=== PATIENT | male | born 1960 | race Caucasian/White ===

== ENCOUNTER → 2016-09-21 12:04 | Outpatient (CLI) | payer BC | END | disposition home or self-care (01) | LOC: D.US 12:04 | DX: R60.0 Localized edema (principal) ==

== ENCOUNTER 2018-05-14 17:06 | Observation (INO) | payer OTHER ==
[~2018-05-14] VITALS: Ht 172.7 cm; Wt 104.1 kg
[2018-05-14] MEDS ORDERED: NEXIUM20 MG PO (17:21)
[2018-05-14 17:41] LABS: BASOPHILS 0.2 % (0-2); EOSINOPHILS 2.4 % (0-7); HEMATOCRIT 42.4 % (42.0-54.0); HEMOGLOBIN 14.7 g/dL (13.5-17.5); IMMATURE GRANULOCYTES 0.2 % (0-5); LYMPHOCYTES 24.8 % (15-50); MCH 30.6 pg (26.0-34.0); MCHC 34.7 g/dL (31.0-37.0); MCV 88.1 fL (80.0-100.0); MONOCYTES 7.3 % (2-11); NEUTROPHILS 65.1 % (40-80); PLATELET COUNT 178 10x3/uL (130-400); RBC 4.81 10x6/uL (4.20-6.10); RDW 13.7 % (11.5-14.5); WBC 6.3 10x3/uL (4.8-10.8)
[2018-05-14 18:32] LABS: ALBUMIN 4.1 g/dL (3.4-5.0); ALKALINE PHOSPHATASE 93 U/L (46-116); ALT (SGPT) 61 U/L (10-68); CALC OSMOLALITY 281 mosm/kg (275-300); CALCIUM 8.8 mg/dL (8.5-10.1); CHLORIDE - SERUM 104 mmol/L (98-107); CREATINE KINASE 95 UL (21-232); GLUCOSE 94 mg/dL (74-106); POTASSIUM - SERUM 4.1 mmol/L (3.5-5.1); SODIUM 141 mmol/L (136-145); UREA NITROGEN 16 mg/dL (7-18)
[2018-05-14 18:33] LABS: TROPONIN-I < 0.017 ng/mL (0.000-0.060)
--- NOTE | 2018-05-14 18:39 | NUR ---
PT SITTING UPRIGHT IN BED, RESPIRATIONS EVEN AND UNLABORED. NO SIGNS OF DISTRESS. PT DENIES ANY CP. CALL LIGHT IN REACH, FAMILY MEMBER AT THE BEDSIDE. WILL CONTINUE TO MONITOR.
--- NOTE | 2018-05-14 18:50 | NUR ---
DR. JOHNSTON AT BEDSIDE.
--- NOTE | 2018-05-14 19:19 | NUR ---
HAND-OFF REPORT GIVEN TO JORGE SMITH.
[2018-05-14 20:16] LABS: CARBON DIOXIDE 24.2 mmol/L (21.0-32.0); CREATININE - SERUM 1.2 mg/dL (0.6-1.3); eGFR NON AFRICAN AMERICAN 66 mL/min (90-120)
--- NOTE | 2018-05-14 20:43 | NUR ---
PT STABLE, DENIES NEEDS, CALL LIGHT WITHIN REACH, WILL CONTINUE TO MONITOR.
--- NOTE | 2018-05-14 21:00 | NUR ---
INITIAL ROUNDS COMPLETED AND PT RESTING IN BED WITH NO DISTRESS. MONITOR AND CPOC.
[2018-05-14 21:05] VITALS: BP 131/85
--- NOTE | 2018-05-14 21:10 | NUR ---
ATTEMPTED TO CALL REPORT, PAULO TO CALL BACK WHEN OUT OF A PATIENT ROOM.
--- NOTE | 2018-05-14 21:39 | NUR ---
PT REPORT CALLED TO NURSE PAULO. PT ADMITTED TO ROOM 2121. PT STABLE AT THIS TIME.
[2018-05-14 23:55] VITALS: BP 130/79
[2018-05-15 00:07] VITALS: BP 128/80; Ht 172.7 cm; Wt 104.1 kg
[2018-05-15 03:55] VITALS: BP 118/71
[2018-05-15 05:39] LABS: BASOPHILS 0.2 % (0-2); EOSINOPHILS 3.2 % (0-7); HEMATOCRIT 38.8 % (42.0-54.0); HEMOGLOBIN 13.2 g/dL (13.5-17.5); IMMATURE GRANULOCYTES 0.2 % (0-5); LYMPHOCYTES 30.7 % (15-50); MCH 29.9 pg (26.0-34.0); MEAN PLATELET VOLUME 9.2 fL (7.4-10.4); MONOCYTES 11.9 % (2-11); NEUTROPHILS 53.8 % (40-80); PLATELET COUNT 180 10x3/uL (130-400); RBC 4.41 10x6/uL (4.20-6.10); RDW 13.8 % (11.5-14.5)
[2018-05-15 05:41] LABS: WBC 4.6 10x3/uL (4.8-10.8)
[2018-05-15 06:10] LABS: ALBUMIN 3.3 g/dL (3.4-5.0); ALKALINE PHOSPHATASE 75 U/L (46-116); ALT (SGPT) 54 U/L (10-68); BILIRUBIN - TOTAL 0.33 mg/dL (0.2-1.3); CALC OSMOLALITY 283 mosm/kg (275-300); CALCIUM 8.1 mg/dL (8.5-10.1); CARBON DIOXIDE 27.5 mmol/L (21.0-32.0); CHLORIDE - SERUM 108 mmol/L (98-107); CKMB 0.7 U/L (0.0-3.6); CREATINE KINASE 62 UL (21-232); CREATININE - SERUM 1.1 mg/dL (0.6-1.3); GLUCOSE 101 mg/dL (74-106); POTASSIUM - SERUM 3.8 mmol/L (3.5-5.1); PROTEIN - SERUM 6.5 g/dL (6.4-8.2); SODIUM 142 mmol/L (136-145); TROPONIN-I < 0.017 ng/mL (0.000-0.060); UREA NITROGEN 15 mg/dL (7-18); eGFR NON AFRICAN AMERICAN 73 mL/min (90-120)
--- NOTE | 2018-05-15 08:09 | NUR ---
ASSESSMENT COMPLETED. DENIES ANY PAIN. TELEMERTY SHOWS SB. UP AB YANY. WILL MONITOR RIGHT HAND SL
[2018-05-15 08:37] VITALS: BP 113/78
--- NOTE | 2018-05-15 10:50 | NUR ---
PT DISCHARGED. IV DCD WITH TIP INTACT. INSTRUCTIONS GIVEN TO PT AND . TO PRIVATE CAR PER WHEELCHAIR
--- NOTE | 2018-05-15 17:16 | MORECARE ---
CASE MANAGEMENT DISCHARGE SUMMARY PATIENT: WILBERT CRAWFORD JR UNIT: [id number] ADM DATE: 05/14/18 AGE: 57 : 56 SEX: M ROOM/BED: D.2122 AUTHOR: STEPHANIE PELLETIER PHYSICIAN: REFERRING PHYSICIAN: TODD ALTAMIRANO MD DATE OF SERVICE: 05/15/18 Discharge Plan Patient Name: WILBERT CRAWFORD [facility] [facility] 1960 Planned Disposition: Home Anticipated Discharge Date: 05/15/18 Discharge Date: 05/15/2018 Expected LOS: 1 Initial Reviewer: [id number] Initial Review Date: 05/15/2018 Generated: 05/15/18 6:16 pm Patient Name: WILBERT CRAWFORD Page [id number] at 1716 All edits/amendments must be made on the electronic document DICTATION DATE: 05/15/181715 SCABBLER: ALEXANDRA 05/15/181715 RPT#: [id number] DC DATE:05/15/18 STATUS: DIS IN [facility] [address] [facility] [place] [address] END OF REPORT
== END 2018-05-15 10:56 | disposition home or self-care (01) ==
LOC: D.OPS 17:06 → D.ER 17:06 → OBSVTIME 19:15 → D.M2 19:15 → EDSTATUS 19:30 → D.M2 05-15 10:56
PROVIDERS: Family Medicine; ADMIT Internal Medicine Interventional Cardiology; ATTEND Internal Medicine Interventional Cardiology
DX: R07.9 Chest pain, unspecified (principal); K21.9 Gastro-esophageal reflux disease without esophagitis; R00.1 Bradycardia, unspecified

== ENCOUNTER → 2018-05-23 14:41 | Outpatient (CLI) | payer OTHER ==
[2018-05-15 00:07] VITALS: BMI 34.9
[~2018-05-23 14:41] MED LIST: NEXIUM20 MG PO
--- NOTE | 2018-05-25 15:13 | ST ---
PATIENT:WILBERT CRAWFORD JR MEDICAL RECORD: [id number] SEX: M LOCATION:[facility] ORDER #: ADMISSION DATE: 05/23/18 AGE OF PATIENT: 57 REFERRING PHYSICIAN: INTERPRETING PHYSICIAN: TODD ALTAMIRANO MD DATE OF SERVICE: 05/23/2018 PROCEDURE: Stress test on Jesus protocol. INDICATION: Chest pain. He was exercised on standard Jesus protocol for 8 minutes, terminated due to 100% max target heart rate response to treatment. He did have 2-mm ST depression with stress. OVERALL IMPRESSION: Positive for inducible ischemia at adequate cardiac workload suggestive of significant coronary artery disease. We will proceed with coronary angiography as followup study. TRANSINT:[id number] Voice Confirmation ID: [id number] DOCUMENT ID: [id number] TODD ALTAMIRANO MD at 1513 CC: [id number] DICTATION DATE: 05/23/18 1519 PATIENT CARE TECHNICIAN: 05/24/18 0843 DEP CLI 05/23/[address] [address]
== END | disposition home or self-care (01) ==
LOC: D.HCCARDIO 14:41
PROVIDERS: ATTEND Internal Medicine Interventional Cardiology
DX: R07.9 Chest pain, unspecified (principal)

== ENCOUNTER 2018-06-01 07:56 | Outpatient (CLI) | payer OTHER ==
[~2018-06-01] VITALS: Ht 172.7 cm; Wt 102.3 kg
--- NOTE | ~2018-06-01 | HEMODYNAMI ---
PATIENT:WILBERT CRAWFORD JR MEDICAL RECORD: [id number] : 56 LOCATION:[facility] ADMISSION DATE: 06/01/18 Generatedon:06/01/201812:01 Patient name: WILBERT CRAWFORD Patient #: [id number] SSN: : 1960 Date of study: 06/01/2018 Page: Of Hemodynamic Procedure Report Patient Data Patient Demographics Procedure consent was obtained First Name: WILBRET Gender: Male Last Name: TY Suffix: [facility] Initial: NERIS : 1960 Patient #: [id number] Age: 57 year(s) Race: Unknown Additional ID: [id number] Contact details Address: [address] [place] [address] [facility] State: [place] City: [place] Zip code: [address] Past Medical History Allergies: No known allergies Admission Admission Data Admission Date: 06/01/2018 Admission Time: 7:56 Lab Results Lab Result Date: 06/01/2018 Lab Result Time: 0:00 Biochemistry Name Units Result Min Max BUN mg/dl 16 --(---*)-- 7 18 Creatinine mg/dl 1.2 --(---*)-- 0.6 1.3 CBC Name Units Result Min Max Hemoglobin g/dl 14.6 --(-*--)-- 13.5 17.5 Procedure Procedure Types Cath Procedure Diagnostic Procedure LHC C w/Coronaries Procedure Description Procedure Date Procedure Date: 06/01/2018 Procedure Start Time: 11:51 Procedure End Time: 12:00 Procedure Staff Name Function Bo Patton MD Performing Physician Betsy Castellanos RN Nurse Geovanna Perez RT Scrub Zaki Parr RT Monitor Procedure Data Cath Procedure Fluoroscopy Diagnostic fluoroscopy Total fluoroscopy Time: 1.4 time: 1.4 min min Diagnostic fluoroscopy Total fluoroscopy dose: 483 dose: 483 mGy mGy Contrast Material Contrast Material Type Amount (ml) Isovue 300 32 Entry Location Entry Primary Successful Side Size Upsize Upsize Entry Closure Hardy ccessful Closure Location (Fr) 1 (Fr) 2 (Fr) Remarks Device Remarks Radial Right 6 Fr Mechanical artery Short Compression Estimated blood loss: 10 ml Diagnostic catheters Device Type Used For End Catheter Placement DIAGNOSTIC Weldon 110cm 5 Procedure Fr catheter (136208) Procedure Medications Medication Administration Route Dosage 0.9% NaCl I.V. 100 ml/hr Oxygen etCO2 Nasal cannula 2 l/min Lidocaine 2% added to field 20 Heparin Flush Bag added to field 2 bags (1000units/500ml NS) Radial Cocktail added to field 1 syringe (Verapomil 2mg/Nitro 400mcg/Heparin 1500units) Versed I.V. 2 mg Fentanyl I.V. 50 mcg Versed I.V. 1 mg Fentanyl I.V. 25 mcg Hemodynamics Rest HGB: 14.6 (g/dl) Heart Rate: 64 (bpm) Pressure Samples Time Site Value (mmHg) Purpose Heart Use Rate(bpm) 11:53 LV 84/1,6 Snapshot 57 11:53 LV 88/-1,7 EDP 60 Snapshots Pre Cath Intra NCS Post Cath Vital Signs Time Heart Resp SPO2 etCO2 NIBP (mmHg) Rhythm Pain Sedation Rate (ipm) (%) (mmHg) Status Level (bpm) 11:14:30 58 13 99 37.3 135/86(104) SB 0 (11) 10(A) , No pain 11:18:50 59 16 100 35.8 139/88(106) SB 0 (11) 10(A) , No pain 11:23:11 55 11 100 31.3 131/88(105) SB 0 (11) 10(A) , No pain 11:27:27 58 9 99 10.4 124/77(93) SB 0 (11) 10(A) , No pain 11:31:37 59 9 98 37.3 119/83(96) SB 0 (11) 10(A) , No pain 11:35:51 57 9 98 37.3 120/84(98) SB 0 (11) 10(A) , No pain 11:40:11 53 10 99 40.3 125/71(85) SB 0 (11) 10(A) , No pain 11:44:27 50 10 99 38.8 121/73(102) SB 0 (11) 10(A) , No pain 11:48:39 48 10 99 11.9 115/77(99) SB 0 (11) 10(A) , No pain 11:52:52 64 12 100 39.5 111/79(91) SB 0 (11) 10(A) , No pain 11:57:02 65 11 97 38.8 103/68(86) SB 0 (11) 10(A) , No pain Medications Time Medication Route Dose Verified Delivered Reason Notes E ffectiveness by by 11:16:07 0.9% NaCl I.V. 100 Bo Betsy used for ml/hr Pooja Castellanos missileman 11:17:05 Oxygen etCO2 2 l/min Bo Betsy used for Nasal Pooja Castellanos procedure cannula RN 11:17:12 Lidocaine 2% added 20ml Bo Bo for local to vial Pooja Patton MD anesthetic field 11:17:17 Heparin Flush added 2 bags Bo Bo used for Bag to Pooja Patton MD procedure (1000units/500ml field NS) 11:17:23 Radial Cocktail added 1 Bo Bo used for (Verapomil to syringe Pooja Patton MD procedure 2mg/Nitro field 400mcg/Heparin 1500units) 11:48:50 Versed I.V. 2 mg Bo Betsy for Pooja Castellanos sedation RN 11:48:56 Fentanyl I.V. 50 mcg Bo Betsy for Pooja Castellanos sedation RN 11:52:03 Fentanyl I.V. 25 mcg Bo Betsy for Pooja Castellanos sedation RN 11:52:56 Versed I.V. 1 mg Bo Betsy for Pooja Castellanos sedation transitional living specialist Log Time Note 11:00:08 Betsy Castellanos RN sent for patient. Start room use. 11:05:34 Signed procedure consent form obtained from patient. 11:05:35 Time tracking: Regular hours (M-F 7:00 - 5:00) 11:05:38 Plan of Care:Hemodynamics will remain stable., Cardiac rhythm will remain stable., Comfort level will be maintained., Respiratory function will remain adequate., Patient/ family verbilizes understanding of procedure., Procedure tolerated without complication., Recovers from procedure without complications.. 11:05:40 Diagnostic Cath status Elective 11:06:25 Patient received from Pre/Post Procedure Room to CCL 1 Alert and oriented. Tansferred to table in Supine position. 11:06:26 Warm blankets applied, and benjamin hugger turned on for patient comfort. 11:06:27 Correct patient and procedure confirmed by team. 11:06:27 ECG and BP/O2 sat monitors applied to patient. 11:13:21 Vital chart was started 11:13:23 Baseline sample Acquired. 11:13:33 Rhythm: sinus bradycardia 11:13:36 Full Disclosure recording started 11:13:39 H&P Date Dictated: 06/01/2018 New H&P dictated by physician.. 11:13:40 Pre-procedure instructions explained to patient. 11:13:40 Pre-op teaching completed and patient verbalized understanding. 11:13:42 Family in patients room. 11:13:43 Patient NPO since Midnight. 11:13:47 Patient allergic to No known allergies 11:13:49 Is patient on blood thinner?No 11:13:53 Previous problem with sedation/anesthesia? No ? 11:13:54 Snore? Yes 11:13:58 Sleep apnea? No 11:13:58 Deviated septum? No 11:14:00 Opens mouth fully? Yes 11:14:00 Sticks out tongue? Yes 11:14:02 Airway obstruction? No ? 11:14:08 Dentures? Yes PARTIAL IN TIGHT 11:14:13 Modified Jorge's test Ulnar < 7 seconds 11:14:15 Patient pain scale 0/10 ?. 11:14:18 IV patent on arrival in left hand with 0.9% NaCl at O. 11:14:55 Lab results completed and on chart. 11:15:05 Right Radial & Right Groin area was prepped with chlora-prep and draped in sterile fashion 11:15:07 Alarms reviewed by R. N. 11:15:07 Sharps counted by scrub and verified by R.N. 11:15:10 Use device set Radial Dx or PCI 11:15:10 ACIST Syringe (75775) opened to sterile field. 11:15:13 Bag Decanter () opened to sterile field. 11:15:13 ACIST Hand Control (96408) opened to sterile field. 11:15:14 ACIST Manifold (91857) opened to sterile field. 11:15:14 Tegaderm 4 x 4 (1626W) opened to sterile field. 11:15:16 Medline Cath Pack ([id number]) opened to sterile field. 11:15:17 DIAGNOSTIC WIRE .035 260cm J wire (808915) opened to sterile field. 11:15:17 MBrace Wrist Support ([id number]) opened to sterile field. 11:15:18 SHEATH 6FR Slender (86-2536) opened to sterile field. 11:16:07 0.9% NaCl 100 ml/hr I.V. was administered by Betsy Castellanos RN; used for procedure; 11:16:11 Lab Result : BUN 16 mg/dl 11:16:11 Lab Result : Hemoglobin 14.6 g/dl 11:16:11 Lab Result : Creatinine 1.2 mg/dl 11:17:05 Oxygen 2 l/min etCO2 Nasal cannula was administered by Betsy Castellanos RN; used for procedure; 11:17:12 Lidocaine 2% 20ml vial added to field was administered by Bo Patton MD; for local anesthetic; 11:17:17 Heparin Flush Bag (1000units/500ml NS) 2 bags added to field was administered by Bo Patton MD; used for procedure; 11:17:23 Radial Cocktail (Verapomil 2mg/Nitro 400mcg/Heparin 1500units) 1 syringe added to field was administered by Bo Patton MD; used for procedure; 11:19:01 Patient diabetic? No. 11:19:37 Pre procedure: right dorsailis pedis pulse 2+ Normal; easily identifiable; not easily obliterated 11:35:38 Dr. Patton in room 3 11:48:07 Physician arrived 11:48:28 --------ALL STOP TIME OUT------ 11:48:30 Final Timeout: patient, procedure, and site verified with staff and physician. All members of the team are in agreement. 11:48:34 Right Radial & Right Groin site verified by team. 11:48:40 Maximum allowable Isovue 300 dose 300ml. Physician notified. (300ml for normal creatinines. For patients with creatinine of 1.7 or higher multiply weight(kg) x 5 divided by creatinine.) 11:48:46 Fire Safety Assessment: A--An alcohol-based skin anteseptic being used preoperatively., C--Open oxygen or nitrous oxide is being used., D--An ESU, laser, or fiber-optic light is being used. 11:48:50 Versed 2 mg I.V. was administered by Betsy Castellanos RN; for sedation; 11:48:56 Fentanyl 50 mcg I.V. was administered by Betsy Castellanos RN; for sedation; 11:48:56 Physical assessment completed. ASA score P 2 - A patient with mild systemic disease as per Bo Patton MD. 11:49:02 Sedation plan: IV Moderate Sedation Medication:Versed, Fentanyl 11:51:25 Procedure started. 11:51:37 Local anesthetic to right radial artery with Lidocaine 2% by Bo Patton MD.INITIAL ACCESS ONLY 11:52:03 Fentanyl 25 mcg I.V. was administered by Betsy Castellanos RN; for sedation; 11:52:16 A 6 Fr Short sheath was inserted into the Right Radial artery 11:52:25 A DIAGNOSTIC Weldon 110cm 5 Fr catheter ([id number]) was advanced over the wire and used for Procedure. 11:52:50 Zero performed for pressure channel P1 11:52:53 Zero performed for pressure channel P1 11:52:56 Versed 1 mg I.V. was administered by Betsy Castellanos RN; for sedation; 11:54:06 LV gram done using MILAN 11:54:08 LV hemodynamics recorded. 11:54:14 EF : 50 % 11:54:39 LCA angiography performed. 11:55:50 RCA angiography performed. 11:56:06 Catheter removed. 11:56:17 TR BAND Standard ([id number]) opened to sterile field. 11:56:37 Sheath removed intact; hemostasis achieved with Mechanical Compression to the Right Radial artery. 11:56:41 Procedure ended.(Physican Out) 11:56:47 Fluoroscopy time 01.40 minutes. 11:57:02 Fluoroscopy dose: 483 mGy 11:57:02 Flurop Dose total: 483 11:57:07 Contrast amount:Isovue 300 32ml. 11:57:10 Sharps counted by scrub and verified by R.N. 11:59:24 TR band inflated with 9cc of air. 11:59:26 Insertion/operative site no bleeding no hematoma. 11:59:33 Post right radial artery:stable 12:00:02 Post Procedure Pulses reassessed and unchanged 12:00:05 Post-procedure physical assessment completed. ASA score P 2 - A patient with mild systemic disease as per Bo Patton MD. 12:00:09 Post procedure rhythm: sinus bradycardia 12:00:12 Estimated blood loss: 10 ml 12:00:15 Patient needs reinforcement of post procedure teaching. 12:00:16 Procedure and supply charges have been captured, reviewed, submitted and are correct. 12:00:18 Vital chart was stopped 12:00:18 See physician's report for complete and final results. 12:00:30 Report given to Pre/Post Procedure Room. 12:00:35 Patient transfered to Pre/Post Procedure Room with Stretcher. 12:00:37 Procedure ended. 12:00:37 Full Disclosure recording stopped 12:00:40 End room use (Document Last) Device Usage Item Name Manufacture Quantity Catalog Hospital Part Current Minimal Lot# / Number Charge Number Stock Stock Serial# Code ACIST Acist 1 33217 351120 403316 434077 20 Syringe Medical (10591) Systems Inc Bag Microtek 1 2001S 424855 70951 029546 5 Decanter Medical Inc. () ACIST Hand Acist 1 84838 542450 923789 989188 5 Control Medical (40093) Systems Inc ACIST Acist 1 60648 596544 312597 956266 5 Manifold Medical (77017) Systems Inc Tegaderm 4 3M 1 1626W 393297 002722 580070 5 x 4 (1626W) Medline Medline 1 [id number] 265290 87447 532125 5 Cath Pack ([id number]) DIAGNOSTIC St Shaka 1 526008 564575 374051 684150 30 WIRE .035 260cm J wire (207939) MBrace Advanced 1 140-0250-00 909399 99601 705228 5 Wrist Vascular Support Dynamics ([id number]) SHEATH 6FR Terumo 1 [id number] 922827 058002 088837 5 Slender (80-1060) DIAGNOSTIC Terumo 1 40-8321 814781 902554 879944 5 Weldon 110cm 5 Fr catheter (003800) TR BAND Terumo 1 [id number] 043275 620053 946344 40 Standard ([id number]) Signature Audit Talbott Stage Time Signature Unsigned Intra-Procedure 06/01/2018 Zaki Parr 12:01:04 PM RT(R) (CV) Signatures Monitor : Zaki Parr RT Signature : Date : Time : [place] [id number] [place] [address]
--- NOTE | ~2018-06-01 | OP ---
PATIENT NAME: WILBERT CRAWFORD JR MEDICAL RECORD: [id number] :56 LOCATION:D.[facility] ADMISSION DATE: SURGEON: TODD ALTAMIRANO MD DATE OF OPERATION: 06/01/2018 PROCEDURES: 1. Left heart catheterization. 2. Selective coronary angiography. 3. Left ventriculogram. INDICATION: Chest pain compatible with angina, abnormal stress test. PROCEDURE IN DETAIL: After informed consent was obtained and after a detailed description of risks, benefits as well as alternative therapies, the patient elected to proceed with angiogram and heart catheterization. The right radial area was prepped and draped in normal sterile fashion. Right radial artery was cannulated via modified Seldinger technique with placement of 6-Mongolian sheath. All catheters exchanged through this sheath. FINDINGS: The left ventriculogram was performed in standard 30-degree MILAN view, reveals good cardiac wall motion, ejection fraction 60%. SELECTIVE CORONARY ANGIOGRAPHY: 1. Left main is with no significant angiographic disease. 2. Left anterior descending has moderate irregularities, but no flow-limiting stenosis. 3. The left circumflex has moderate irregularities, but no flow-limiting stenosis. 4. Right coronary artery has moderate irregularities, but no flow-limiting stenosis. OVERALL IMPRESSION: Minimal coronary artery disease is present, no stenosis greater than 20%. No flow-limiting stenosis. Chest pain is noncardiac in etiology. Continue medical management of the coronary artery disease and cardiac risk factors. TRANSINT:[id number] Voice Confirmation ID: [id number] DOCUMENT ID: [id number] TODD ALTAMIRANO MD CC: [id number] DICTATION DATE: 06/01/18 1200 WAREHOUSE PRODUCTION WORKER: 06/01/18 1233 [facility] [address] [place] [address]
--- NOTE | ~2018-06-01 | HP ---
PATIENT: WILBERT GANNON JR MEDICAL RECORD: [id number] ACCOUNT: [id number] LOCATION:[facility] : 56 ADMISSION DATE: 06/01/18 PCP: MUKUND ACHARYA MD HISTORY AND PHYSICAL EXAMINATION DIAGNOSES: 1. Angina. 2. Abnormal stress test. HISTORY OF PRESENT ILLNESS: Mr. Gannon presents with chest pain compatible with angina, underwent stress testing. This was abnormal. He continues to have chest pain, now brought for cardiac catheterization. PHYSICAL EXAMINATION: GENERAL APPEARANCE: Well-nourished, well-developed, appears stated age. Level of distress, comfortable. PSYCHIATRIC: Mental status, alert, normal affect. Orientation, oriented to time, place and person. EYES: Lids and conjunctiva, noninjected. No discharge, no pallor. ENT: Lips, teeth, gums, normal dentition. Oropharynx, no cyanosis, no pallor. NECK: Carotid arteries, bilateral normal upstroke, no bruits, no thrills. JUGULAR VEINS: No jugular venous pressure or distention. CERVICAL LYMPH NODES: Nontender, nonenlarged. THYROID: Not enlarged. Nontender. No nodules. LUNGS: Respiratory effort, unlabored. CHEST: Normal curvature. No thoracic deformity. No chest wall tenderness. Percussion, resonant. Auscultation, clear. No wheezes, no rales, no rhonchi. CARDIOVASCULAR: Precordial exam, nondisplaced. No heaves or pericardial thrills. Rate and rhythm, regular. Heart sounds, normal S1, normal S2. No S3, no gallop, no rub. Systolic murmur, not heard. Diastolic murmur, not heard. EXTREMITIES: No cyanosis, no edema. Peripheral pulses, full and equal in all extremities, except as noted. No bruits appreciated. ABDOMEN: Soft, nondistended. Normal aorta. No bruit. Nontender. No masses. Liver, nontender, no hepatomegaly. Spleen, nontender, no splenomegaly. MUSCULOSKELETAL: No joint tenderness. No joint swelling. No erythema. NEUROLOGICAL: Normal gait, normal strength, normal tone. SKIN: Warm and dry. OVERALL IMPRESSION: Anginal symptomatology with abnormal stress test. We will proceed with coronary angiography. Further care depends upon findings of the angiography. TRANSINT:[id number] Voice Confirmation ID: [id number] DOCUMENT ID: [id number] TODD ALTAMIRANO MD CC: [id number] DICTATION DATE: 06/01/18 1042 CARDIOVASCULAR INVASIVE SPECIALIST: 06/01/[address] [facility] [address] [place] [id number]
[2018-06-01] MEDS ORDERED: NEXIUM20 MG PO (08:11)
[2018-06-01 08:17] VITALS: BP 134/85; Ht 172.7 cm; Wt 102.3 kg
[2018-06-01 08:27] LABS: BASOPHILS 0.2 % (0-2); EOSINOPHILS 2.8 % (0-7); HEMATOCRIT 41.5 % (42.0-54.0); HEMOGLOBIN 14.6 g/dL (13.5-17.5); IMMATURE GRANULOCYTES 0.2 % (0-5); LYMPHOCYTES 22.4 % (15-50); MCH 30.5 pg (26.0-34.0); MCHC 35.2 g/dL (31.0-37.0); MCV 86.6 fL (80.0-100.0); MEAN PLATELET VOLUME 8.8 fL (7.4-10.4); MONOCYTES 8.7 % (2-11); NEUTROPHILS 65.7 % (40-80); PLATELET COUNT 167 10x3/uL (130-400); RBC 4.79 10x6/uL (4.20-6.10); RDW 13.5 % (11.5-14.5); WBC 5.6 10x3/uL (4.8-10.8)
[2018-06-01 08:36] LABS: ANION GAP 13.1 mmol/L (8-16); CALCIUM 8.5 mg/dL (8.5-10.1); CARBON DIOXIDE 26.9 mmol/L (21.0-32.0); CREATININE - SERUM 1.2 mg/dL (0.6-1.3)
--- NOTE | 2018-06-01 12:13 | NUR ---
RECIEVED TO ROOM VIA STRETCHER FROM FRAME CARVER SPINDLE WITH TR BAND TO R/WRIST CDI NO BLEEDING NOTED. PATIENT AROUSES TO VERBAL WITH CHEST PAIN DENIED. HR 54 BP 114/62. INSTRUCTED PATIENT TO KEEP RUE STRAIGHT NO BENDING OR FLEXING OF WRIST
--- NOTE | 2018-06-01 12:23 | NUR ---
TR BAND REMAINS CDI WITH R/HAND WARM TO TOUCH CAP REFILL BRISK. SINUS LEE ANN RATE OF 50. PATIENT DENIED PAIN OR NEEDS CALL LIGHT IN REACH
--- NOTE | 2018-06-01 12:44 | NUR ---
DR ALTAMIRANO AT BEDSIDE WITH PATIENT. TR BAND REMAINS TO R/WRIST CDI
--- NOTE | 2018-06-01 13:02 | NUR ---
SITTING WITH HOB UP 30 DEGREES CHEST PAIN IS DENIED WITH VSS. TOLERATING SANDWICH AND SODA WITH NAUSEA DENIED. TR BAND TO R/WRIST IS CDI
--- NOTE | 2018-06-01 13:20 | NUR ---
2 CC OF AIR WEANED FROM TR BAND WITH NO BLEEDING NOTED.
--- NOTE | 2018-06-01 13:40 | NUR ---
DISCHARGE INSTRUCTIONS REVIEWED W PT AND , BOTH VERBALIZED UNDERSTANDING. 3 ADD'L CC OF AIR REMOVED FROM TR BAND W NO BLEEDING. IV REMOVED W CATH INTACT, MONITORS REMOVED AND PT UP TO DRESS FOR DISCHARGE.
--- NOTE | 2018-06-01 13:57 | NUR ---
TR BAND AND REMAINING AIR REMOVED W/O BLEEDING OR SWELLING. 2X2 AND TEGADERM DRESSING APPLIED. PT DISCHARGED VIA WC TO PRIVATE VEHICLE WITH ALL BELONGINGS.
== END 2018-06-01 14:00 | disposition home or self-care (01) ==
LOC: D.CATH 07:56
PROVIDERS: ATTEND Internal Medicine Interventional Cardiology
DX: I20.9 Angina pectoris, unspecified (principal); R94.30 Abnormal result of cardiovascular function study, unspecified; R07.9 Chest pain, unspecified

== ENCOUNTER → 2019-01-08 15:34 | Outpatient (CLI) | payer OTHER ==
[2018-06-01 08:17] VITALS: BMI 34.2
== END | disposition home or self-care (01) ==
LOC: D.MRI 15:34
PROVIDERS: ATTEND Clinical Nurse Specialist Family Health
DX: M25.561 Pain in right knee (principal)

== ENCOUNTER 2019-01-31 09:05 | Day surgery (SDC) | payer OTHER, BC ==
[~2019-01-31] VITALS: Ht 172.7 cm; Wt 102.1 kg
[~2019-01-31 09:05] MED LIST changes: +DEXILANT60 MG PO; +MOBIC7.5 MG PO
[2019-01-31 09:24] VITALS: BP 124/81; Ht 172.7 cm; Wt 102.1 kg
[2019-01-31] MEDS ORDERED: HYDROCODON-ACE1 EA10 PO (13:49)
--- NOTE | 2019-01-31 15:32 | NUR ---
DISCHARGE INSTRUCTIONS REVIEWED WITH PATIENT AND SPOUSE, PATIENT AMBULATING AROUND ROOM WITH CRUTCHES, NO DIZZINESS OR UNSTEADINESS. PIV DC'D WITH TIP INTACT. DISCHARGED HOME VIA WHEELCHAIR TO PRIVATE VEHICLE WITH SPOUSE
--- NOTE | 2019-02-01 06:22 | OP ---
PATIENT NAME: WILBERT CRAWFORD JR MEDICAL RECORD: [id number] :56 LOCATION:[facility] ADMISSION DATE: SURGEON: ADRIANNE KHAN MD DATE OF OPERATION: 01/31/2019 PREOPERATIVE DIAGNOSIS: Medial meniscus tear of the right knee. POSTOPERATIVE DIAGNOSIS: Medial meniscus tear of the right knee. PROCEDURE: Arthroscopic partial medial meniscectomy. SURGEON: Adrianne Khan MD ANESTHESIA: General. INTRAOPERATIVE COMPLICATIONS: None. SUMMARY OF PATHOLOGIC FINDINGS: The patient has a complex tear of the posterior horn of the medial meniscus essentially from the 3 o'clock back around to the 1:30 position. This required a combination of resector as well as meniscotome resection with good residual meniscus left. Very minimal arthritis was found in the entire joint. OPERATIVE SUMMARY IN DETAIL: After obtaining the appropriate preoperative orthopedic surgery consent as well as anesthetic consultation, evaluation and clearance, the patient was brought to the operating room and placed on the operating table in a supine position. After general laryngeal mask airway was administered, tourniquet was placed about the proximal aspect of the right lower extremity. Right lower extremity was then prepped and draped in routine sterile fashion. The leg was elevated and exsanguinated, tourniquet was inflated to 350 mmHg. Routine inferolateral portal was developed superomedial portal and inferomedial portal. Diagnostic arthroscopy showed the patient not only had a complex tear of the posterior horn of the medial meniscus but a partial thickness tear of the ACL. All along the ACL had substantial good fiber residual, some of the torn fibers of the ACL was resected. At this point, attention was turned to the medial meniscus. A combination of a resector, arthroscopic resector as well as the meniscotomes were utilized to debride the meniscus back to stable meniscal elements. Having completed this, arthroscopy portals were closed in routine interrupted fashion using 4-0 Prolene. The knee was insufflated with 30 mL of 0.25% Marcaine with epinephrine and 80 mg Depo-Medrol. Arthroscopy portals were closed in routine interrupted fashion using 4-0 Prolene. Sterile dressings were applied. The patient was awakened and taken to the recovery room in stable condition. All final needle and sponge counts were correct. TRANSINT:[id number] Voice Confirmation ID: [id number] DOCUMENT ID: [id number] OPERATIVE REPORT [id number] GAMMWILBERT REIS JR, MD, ADRIANNE OGDEN at 0622 CC: [id number] DICTATION DATE: 01/31/19 1354 SHEETMETAL TRADES WORKER: 01/31/19 1722 [facility] 01/31/19 [facility] [address] [place] [address]
== END 2019-01-31 15:32 | disposition home or self-care (01) ==
LOC: D.OPS 09:05 → D.PAN 11:15 → D.OPS 15:32 → D.PAN 15:45
PROVIDERS: ATTEND Orthopaedic Surgery
DX: S83.241A Other tear of medial meniscus, current injury, right knee, initial encounter (principal); M17.12 Unilateral primary osteoarthritis, left knee; M25.562 Pain in left knee; S83.512A Sprain of anterior cruciate ligament of left knee, initial encounter